=== PATIENT | female | born 1990 | race African-American/Black ===

== ENCOUNTER 2024-01-16 09:32 | Emergency (ER) | payer MEDICAID ==
[~2024-01-16] VITALS: Ht 172.7 cm; Wt 65.0 kg
[~2024-01-16 09:32] MED LIST: GABA-1180 MT; HYDR-4001 MT; LANTUSUD SUBCUT
[2024-01-16 09:38] VITALS: O2SAT 97
[2024-01-16 11:01] LABS: BASOPHILS % 0.5 % (0.0-2.0); EOSINOPHILS % 1.7 % (0.0-5.0); HEMATOCRIT. 41.3 % (36.0-48.0); HEMOGLOBIN. 13.5 g/dL (12.0-16.0); LYMPHOCYTES % 20.8 % (20.0-50.0); MEAN CORPUSCULAR HEMOGLOBIN 29.4 pg (28.0-32.0); MEAN CORPUSCULAR HGB CONC 32.7 g/dL (31.0-37.0); MONOCYTES % 6.9 % (2.0-8.0); NEUTROPHILS % 70.1 % (40.0-76.0); RED BLOOD CELL COUNT 4.59 mill/uL (4.2-5.4); RED CELL DISTRIBUTION WIDTH 13.8 % (11.6-14.6); WHITE BLOOD COUNT 5.6 x1000/uL (4.5-11.0)
[2024-01-16 11:02] LABS: CHLORIDE 102 mEq/L (98-107); POTASSIUM 4.5 mEq/L (3.5-5.1); SODIUM 135 mEq/L (136-145)
[2024-01-16 11:03] LABS: CALCIUM 9.6 mg/dL (8.7-10.4); CARBON DIOXIDE 27 mEq/L (21-32)
[2024-01-16 11:07] LABS: INR 0.9; PROTHROMBIN TIME 9.9 sec (9.6-11.0)
[2024-01-16 11:08] LABS: CREATININE 0.8 mg/dL (0.6-1.0); GLUCOSE 258 mg/dL (70-105); UREA NITROGEN BLOOD 10 mg/dL (9-23)
[2024-01-16] MEDS: MORPHINE SULFATE 4 MG/ML INJ (FOR IV/IM USE) IV ONE (11:09)
[2024-01-16 11:11] LABS: DIFFERENTIAL COMMENT 1
[2024-01-16 11:14] LABS: HCG SCREEN NEGATIVE
[2024-01-16] MEDS: DIPHENHYDRAMINE 50MG/ML VIAL IV ONE (11:39)
[2024-01-16 11:51] LABS: MEAN PLATELET VOLUME 9.1 fl (7.4-10.4); PLATELET 138 x1000/uL (130-400)
[2024-01-16] MEDS ORDERED: IOHEXOL-350 100 ML BOTTLE ONE (12:46)
[2024-01-16] MEDS ORDERED: METH-653 MT (13:16)
[2024-01-16] MEDS ORDERED: IBUP-2029 MT (13:16)
[2024-01-16] MEDS: ACETAMINOPHEN 325MG TABLET PO ONE (13:37)
[2024-01-16 13:46] VITALS: BP 139/93; PULSE 89; RESP 18; TEMP 37.16964; O2SAT 97
== END 2024-01-16 13:48 | disposition home or self-care (01) ==
LOC: ER 09:32
DX: S33.5XXA Sprain of ligaments of lumbar spine, initial encounter (principal); E11.9 Type 2 diabetes mellitus without complications; Z86.73 Personal history of transient ischemic attack (TIA), and cerebral infarction without residual deficits; F12.90 Cannabis use, unspecified, uncomplicated; Z88.8 Allergy status to other drugs, medicaments and biological substances; Z88.6 Allergy status to analgesic agent; Z79.899 Other long term (current) drug therapy; X58.XXXA Exposure to other specified factors, initial encounter; Y93.89 Activity, other specified; Y92.89 Other specified places as the place of occurrence of the external cause; Y99.8 Other external cause status
CPT/HCPCS: 80048; 84703; 85025; 85610; 86850; 86900; 86901; 36415; 71260; 72125; 74177; 96374; 96375; 99285; Q9967; J1200; J2270; Z7610

== ENCOUNTER 2024-07-10 14:42 | Emergency (ER) | payer MEDICAID ==
[~2024-07-10] VITALS: Ht 165.1 cm; Wt 59.0 kg
[~2024-07-10 14:42] MED LIST changes: -GABA-1180 MT; -HYDR-4001 MT
[2024-07-10 14:45] VITALS: TEMP 36.9; O2SAT 99
[2024-07-10] MEDS: HALOPERIDOL LACTATE 5MG/ML VIAL IM ONE (15:20)
[2024-07-10] MEDS: SODIUM CHLORIDE 0.9% 1,000 ML IV ONE (15:24)
[2024-07-10 16:29] LABS: EOSINOPHILS % 0.5 % (0.0-5.0); HEMATOCRIT. 40.7 % (36.0-48.0); HEMOGLOBIN. 13.1 g/dL (12.0-16.0); LYMPHOCYTES % 33.9 % (20.0-50.0); MEAN CORPUSCULAR HEMOGLOBIN 28.4 pg (28.0-32.0); MEAN CORPUSCULAR HGB CONC 32.3 g/dL (31.0-37.0); MEAN CORPUSCULAR VOLUME 87.9 fL (81.0-99.0); MEAN PLATELET VOLUME 7.1 fl (7.4-10.4); MONOCYTES % 4.7 % (2.0-8.0); NEUTROPHILS % 59.9 % (40.0-76.0); PLATELET 346 x1000/uL (130-400); RED BLOOD CELL COUNT 4.63 mill/uL (4.2-5.4); RED CELL DISTRIBUTION WIDTH 13.6 % (11.6-14.6); WHITE BLOOD COUNT 6.6 x1000/uL (4.5-11.0)
[2024-07-10 16:46] LABS: INR 0.9; PROTHROMBIN TIME 9.8 sec (9.6-11.0)
[2024-07-10 16:51] LABS: CARBON DIOXIDE 23 mEq/L (21-32); CHLORIDE 100 mEq/L (98-107); POTASSIUM 4.5 mEq/L (3.5-5.1); SODIUM 135 mEq/L (136-145)
[2024-07-10 16:52] LABS: CALCIUM 9.7 mg/dL (8.7-10.4)
[2024-07-10 16:54] LABS: HCG SCREEN NEGATIVE
[2024-07-10 16:56] LABS: CREATININE 0.8 mg/dL (0.6-1.0)
[2024-07-10 16:57] LABS: GLUCOSE 126 mg/dL (70-105); UREA NITROGEN BLOOD 17 mg/dL (9-23)
[2024-07-10 16:58] LABS: ALANINE AMINOTRANSFERASE 19 IU/L (10-49)
[2024-07-10 16:59] LABS: ALBUMIN 4.2 g/dL (3.2-4.8); ASPARTATE AMINOTRANSFERASE 26 IU/L (<34); BETA HYDROXYBUTYRATE 1.4 mMol/L (0.0-0.3); BILIRUBIN DIRECT < 0.1 mg/dL (<=3.0); BILIRUBIN TOTAL 0.4 mg/dL (0.1-1.0); PROTEIN TOTAL 7.2 g/dL (6.0-8.3)
[2024-07-10 19:02] VITALS: BP 101/53; PULSE 89; RESP 15; O2SAT 90
== END 2024-07-10 19:12 | disposition home or self-care (01) ==
LOC: ER 14:42
DX: R16.0 Hepatomegaly, not elsewhere classified (principal); K82.8 Other specified diseases of gallbladder; E11.9 Type 2 diabetes mellitus without complications; F12.90 Cannabis use, unspecified, uncomplicated; Z79.4 Long term (current) use of insulin; Z86.73 Personal history of transient ischemic attack (TIA), and cerebral infarction without residual deficits; Z88.5 Allergy status to narcotic agent
CPT/HCPCS: 80076; 80048; 82010; 84703; 83690; 85025; 85610; 36415; 71045; 76705; 96360; 96372; 99285; J1630; J7030; Z7610 ×2; 96361

== ENCOUNTER 2024-09-09 15:37 | Emergency (ER) | payer MEDICAID ==
[~2024-09-09] VITALS: Ht 167.6 cm; Wt 64.0 kg
[~2024-09-09 15:37] MED LIST changes: +INSU100I28 SQ; +METO5TAB86 MT; +PANT40TA51 MT; +SUCR1TAB PO
[2024-09-09 15:41] VITALS: O2SAT 99
[2024-09-09] MEDS ORDERED: GABA-1180 PO (17:03)
[2024-09-09] MEDS ORDERED: DIPHENHYDRAMINE 25MG CAPSULE PO ONE (17:15)
[2024-09-09] MEDS: DIPHENHYDRAMINE 50MG/ML VIAL IV ONE (17:25)
[2024-09-09] MEDS: METOCLOPRAMIDE HCL 10MG/2ML VIAL IV ONE (17:27)
[2024-09-09] MEDS: ACETAMINOPHEN 1000MG/100ML 100 ML IV ONE (17:30)
[2024-09-09] MEDS: SODIUM CHLORIDE 0.9% 1,000 ML IV ONE (17:31)
[2024-09-09 17:49] LABS: BASOPHILS % 1.3 % (0.0-2.0); EOSINOPHILS % 0.7 % (0.0-5.0); HEMATOCRIT. 41.6 % (36.0-48.0); HEMOGLOBIN. 13.4 g/dL (12.0-16.0); LYMPHOCYTES % 30.3 % (20.0-50.0); MEAN PLATELET VOLUME 7.4 fl (7.4-10.4); MONOCYTES % 5.6 % (2.0-8.0); NEUTROPHILS % 62.1 % (40.0-76.0); PLATELET 435 x1000/uL (130-400); RED BLOOD CELL COUNT 4.73 mill/uL (4.2-5.4); RED CELL DISTRIBUTION WIDTH 15.4 % (11.6-14.6)
[2024-09-09 18:00] LABS: CREATININE 1.1 mg/dL (0.6-1.0)
[2024-09-09 18:01] LABS: UREA NITROGEN BLOOD 15 mg/dL (9-23)
[2024-09-09 18:02] LABS: ETHANOL BLOOD < 10 mg/dL (<10); TROPONIN I HIGH SENSITIVITY < 4 ng/L (3.0-34)
[2024-09-09 18:03] LABS: ASPARTATE AMINOTRANSFERASE 13 IU/L (<34)
[2024-09-09 18:04] LABS: BILIRUBIN DIRECT < 0.1 mg/dL (<=3.0); BILIRUBIN TOTAL 0.4 mg/dL (0.1-1.0); PROTEIN TOTAL 7.5 g/dL (6.0-8.3)
[2024-09-09 18:09] LABS: INR 0.9
[2024-09-09 19:47] LABS: *AMPHETAMINES SCREEN URINE NEGATIVE (NEGATIVE); *BARBITURATES SCREEN URINE NEGATIVE (NEGATIVE); *BENZODIAZEPINES SCREEN URINE NEGATIVE (NEGATIVE); *COCAINE SCREEN URINE PRESUMPTIVE POSITIVE (NEGATIVE); CANNABINOID URINE SCREEN NEGATIVE (NEGATIVE); ECSTASY MDMA SCREEN URINE NEGATIVE (NEGATIVE); METHADONE URINE SCREEN NEGATIVE (NEGATIVE); OPIATES URINE SCREEN NEGATIVE (NEGATIVE); PHENCYCLIDINE URINE SCREEN NEGATIVE (NEGATIVE)
[2024-09-09 19:51] LABS: CLARITY URINE CLEAR (CLEAR); COLOR URINE YELLOW (YELLOW); GLUCOSE URINE 3+ (NEGATIVE); KETONES URINE 4+ (NEGATIVE); PH URINE 5.5 (4.5-8.0); PROTEIN URINE TRACE (NEGATIVE); SPECIFIC GRAVITY URINE 1.034 (1.005-1.030)
[2024-09-09 19:52] LABS: LEUKOCYTE ESTERASE URINE TRACE (NEGATIVE); NITRITE URINE NEGATIVE (NEGATIVE); OCCULT BLOOD URINE NEGATIVE (NEGATIVE); UROBILINOGEN URINE 0.2 E.U./dL (0.2-1.0)
[2024-09-09 20:02] LABS: BACTERIA URINE TRACE; RBC URINE 0-2 /hpf (0-2); SQUAMOUS EPITHELIAL CELL URINE FEW /lpf (RARE/1+)
[2024-09-09] MEDS ORDERED: METO-293 MT (21:15)
[2024-09-09] MEDS ORDERED: TOPUD MT (21:15)
[2024-09-09] MEDS ORDERED: NITR-87 MT (21:15)
[2024-09-09 21:51] VITALS: BP 104/69; PULSE 91; RESP 11; TEMP 36.7; O2SAT 98
== END 2024-09-09 22:33 | disposition home or self-care (01) ==
LOC: ER 15:37
DX: R10.9 Unspecified abdominal pain (principal); E11.9 Type 2 diabetes mellitus without complications; F14.10 Cocaine abuse, uncomplicated; R11.2 Nausea with vomiting, unspecified; Z79.899 Other long term (current) drug therapy
CPT/HCPCS: 80076; 80305; 80048; 81003; 82010; 80320; 82962; 83690; 85025; 85610; 84484; 36415; 71045; 74176; 93005; 96365; 96375; 99285; J1200; J2765; J7030; Z7610 ×3; A4606; G0480; J0131